=== PATIENT | male | born 1960 | race African-American/Black ===

== ENCOUNTER → 2019-03-20 | Day surgery (SDC) | payer MEDICAID ==
[~2019-03-20] VITALS: Ht 175.3 cm; Wt 102.1 kg
[~2019-03-20] MED LIST: ACETAMINOPHEN 325MG TABLET PO PRN; ASPI-1158 MT; FENTANYL CITRATE/PF 50MCG/ML 2ML VIAL ONE; FURO-152 MT; HEPARIN SODIUM 1,000 UNIT/1ML VIAL IV ONE; IODIXANOL 320MG/ML 100 ML BOTTLE IV ONE; LIDOCAINE HCL 1% 20ML VIAL (Pyxis) INJ ONE; LISI10TA5 MT; MIDAZOLAM HCL 2 MG/2 ML VIAL ONE; MORPHINE SULFATE 2 MG/ML CPJ (NOT FOR IM USE) IV PRN; NICARDIPINE 100MCG/ML 10ML VIAL (CATH LAB) IV ONE; NITROGLYCERIN 50MCG/ML 10ML VIAL (CATH LAB) IV ONE; ONDANSETRON HCL 4MG/2ML INJ IV PRN; TOPXL5 MT
[2019-03-20 10:10] LABS: HEMOGLOBIN 15.8 g/dL (14.0-18.0); MEAN CORPUSCULAR HEMOGLOBIN 30.3 pg (28.0-32.0); MEAN CORPUSCULAR VOLUME 88.1 fL (80.0-94.0); PLATELET 223 x1000/uL (130-400); RED BLOOD CELL COUNT 5.22 mill/uL (4.7-6.1); RED CELL DISTRIBUTION WIDTH 13.2 % (11.6-14.6)
[2019-03-20 10:16] LABS: CHLORIDE 110 mEq/L (98-107)
[2019-03-20 10:17] LABS: INR 1.1; PARTIAL THROMBOPLASTIN TIME 30.3 sec (23.4-31.0); PROTHROMBIN TIME 11.1 sec (9.6-11.0)
== END | disposition home or self-care (01) ==
LOC: CCL 09:13
PROVIDERS: ATTEND Internal Medicine Cardiovascular Disease
DX: I42.9 Cardiomyopathy, unspecified (principal); I10 Essential (primary) hypertension; Z98.890 Other specified postprocedural states; Z79.01 Long term (current) use of anticoagulants
CPT/HCPCS: 36415; 80048; 85027; 85610; 85730; 93005; 93458; 99152; C1769; C1887; C1893; J1644; J2250; J3010; J3490; Q9967; G0500

== ENCOUNTER 2019-06-27 23:09 | Emergency (ER) | payer MEDICAID ==
[~2019-06-27] VITALS: Ht 175.3 cm; Wt 102.0 kg
[~2019-06-27 23:09] MED LIST changes: -ACETAMINOPHEN 325MG TABLET PO PRN; -ASPI-1158 MT; -FENTANYL CITRATE/PF 50MCG/ML 2ML VIAL ONE; -HEPARIN SODIUM 1,000 UNIT/1ML VIAL IV ONE; -IODIXANOL 320MG/ML 100 ML BOTTLE IV ONE; -LIDOCAINE HCL 1% 20ML VIAL (Pyxis) INJ ONE; +LISI-604 MT; -LISI10TA5 MT; -MIDAZOLAM HCL 2 MG/2 ML VIAL ONE; -MORPHINE SULFATE 2 MG/ML CPJ (NOT FOR IM USE) IV PRN; -NICARDIPINE 100MCG/ML 10ML VIAL (CATH LAB) IV ONE; -NITROGLYCERIN 50MCG/ML 10ML VIAL (CATH LAB) IV ONE; -ONDANSETRON HCL 4MG/2ML INJ IV PRN; -TOPXL5 MT
[2019-06-28 00:04] LABS: CHLORIDE 110 mEq/L (98-107)
[2019-06-28 00:06] LABS: BASOPHILS % 0.5 % (0.0-2.0); EOSINOPHILS % 2.2 % (0.0-5.0); HEMATOCRIT. 42.1 % (42.0-52.0); HEMOGLOBIN. 14.5 g/dL (14.0-18.0); MEAN CORPUSCULAR HEMOGLOBIN 30.3 pg (28.0-32.0); MEAN CORPUSCULAR VOLUME 87.8 fL (80.0-94.0); MEAN PLATELET VOLUME 9.6 fl (7.4-10.4); MONOCYTES % 10.4 % (2.0-8.0); NEUTROPHILS % 46.9 % (40.0-76.0); PLATELET 168 x1000/uL (130-400)
[2019-06-28 00:08] LABS: ETHANOL BLOOD < 10 mg/dL
[2019-06-28 01:30] VITALS: BP 127/64
== END 2019-06-28 02:09 | disposition left against medical advice (07) ==
LOC: ER 23:09
DX: R53.1 Weakness (principal); I69.954 Hemiplegia and hemiparesis following unspecified cerebrovascular disease affecting left non-dominant side; R20.0 Anesthesia of skin; R20.2 Paresthesia of skin; I10 Essential (primary) hypertension
CPT/HCPCS: 36415; 71045; 80320; 99284; G0480